=== PATIENT | male | born 1950 | race Caucasian/White ===

== ENCOUNTER → 2019-11-14 | Outpatient (CLI) | payer MEDICARE, OTHER ==
[2014-04-08 00:15] VITALS: BP 123/65
[~2019-11-14] MED LIST: KETOROLAC10 MG PO; MIRAPEX0.25 MG PO
[2019-11-14 10:50] LABS: EOS # 0.1 (0.04-0.40); EOS % 2.6 % (0.0-4.0); HEMATOCRIT 48.5 % (42.0-52.0); HEMOGLOBIN 15.9 g/dL (13.5-18.0); MEAN CELL VOLUME 93 fl (78-100); MEAN CORPUSCULAR HEMOGLOBIN 31 pg (27-31); MEAN CORPUSCULAR HGB CONC 33 g/dL (33-37); MEAN PLATELET VOLUME 8.8 fl (7.4-10.4); MONO # 0.5 (0.20-0.80); NEU # 3.2 (1.40-6.50); PLATELET COUNT 259 K/mm3 (130-400); RED CELL DISTRIBUTION WIDTH 13.3 % (11.5-14.5); WHITE BLOOD COUNT 4.7 K/mm3 (4.8-10.8)
[2019-11-14 11:02] LABS: LYMPH# 0.7 (1.50-4.00)
[2019-11-14 11:23] LABS: ALBUMIN 4.1 g/dL (3.4-4.8); POTASSIUM 4.8 mmol/L (3.5-5.1)
[2019-11-14 11:24] LABS: CALCIUM 8.9 mg/dL (8.3-10.5)
[2019-11-14 11:25] LABS: TOTAL PROTEIN 7.1 g/dL (6.2-8.1)
[2019-11-14 11:27] LABS: TOTAL BILIRUBIN 0.9 mg/dL (0.2-1.2)
== END ==
LOC: LAB 10:01
PROVIDERS: Family Medicine
DX: Z00.00 Encounter for general adult medical examination without abnormal findings (principal); Z12.5 Encounter for screening for malignant neoplasm of prostate; R53.83 Other fatigue; E78.5 Hyperlipidemia, unspecified

== ENCOUNTER → 2019-11-20 | Outpatient (CLI) | payer MEDICARE, OTHER ==
[2014-04-08 00:15] VITALS: BP 123/65
[2019-11-20 12:07] LABS: ALBUMIN 4.1 g/dL (3.4-4.8)
[2019-11-20 12:08] LABS: POTASSIUM 5.4 mmol/L (3.5-5.1)
[2019-11-20 12:09] LABS: CALCIUM 9.8 mg/dL (8.3-10.5)
[2019-11-20 12:10] LABS: TOTAL PROTEIN 7.3 g/dL (6.2-8.1)
[2019-11-20 12:12] LABS: TOTAL BILIRUBIN 0.9 mg/dL (0.2-1.2)
[2019-11-20 12:15] LABS: EOS # 0.1 (0.04-0.40); EOS % 2.2 % (0.0-4.0); HEMATOCRIT 47.8 % (42.0-52.0); HEMOGLOBIN 15.9 g/dL (13.5-18.0); MEAN CELL VOLUME 93 fl (78-100); MEAN CORPUSCULAR HEMOGLOBIN 31 pg (27-31); MEAN CORPUSCULAR HGB CONC 33 g/dL (33-37); MEAN PLATELET VOLUME 8.7 fl (7.4-10.4); MONO # 0.7 (0.20-0.80); NEU # 4.4 (1.40-6.50); PLATELET COUNT 330 K/mm3 (130-400); RED BLOOD COUNT 5.16 M/mm3 (4.20-5.60); RED CELL DISTRIBUTION WIDTH 13.1 % (11.5-14.5); WHITE BLOOD COUNT 6.4 K/mm3 (4.8-10.8)
== END ==
LOC: LAB 11:45
PROVIDERS: Family Medicine
DX: N17.9 Acute kidney failure, unspecified (principal); D72.829 Elevated white blood cell count, unspecified

== ENCOUNTER 2019-12-11 08:00 | Outpatient (RCR) | payer MEDICARE, OTHER ==
[2014-04-08 00:15] VITALS: BP 123/65
== END 2020-02-17 | disposition still patient (30) ==
LOC: PT
DX: R42 Dizziness and giddiness (principal)

== ENCOUNTER 2020-10-09 09:19 | Outpatient (RCR) | payer MEDICARE, OTHER ==
[2014-04-08 00:15] VITALS: BP 123/65
== END 2021-01-07 | disposition home or self-care (01) ==
LOC: PT
DX: R42 Dizziness and giddiness (principal)

== ENCOUNTER → 2020-11-08 | Outpatient (CLI) | payer MEDICARE, BC ==
[2014-04-08 00:15] VITALS: BP 123/65
== END ==
LOC: LAB 10:58
DX: U07.1 COVID-19 (principal)

== ENCOUNTER → 2021-02-09 | Outpatient (CLI) | payer MEDICARE, BC ==
[2014-04-08 00:15] VITALS: BP 123/65
[2021-02-09 12:43] LABS: BASO # 0.04 (0.02-0.10); EOS # 0.31 (0.04-0.40); EOS % 6.1 % (0.0-4.0); HEMATOCRIT 48.1 % (42.0-52.0); LYMPH# 0.96 (1.50-4.00); MEAN CELL VOLUME 94 fl (78-100); MEAN CORPUSCULAR HEMOGLOBIN 31 pg (27-31); MEAN CORPUSCULAR HGB CONC 33 g/dL (33-37); MEAN PLATELET VOLUME 8.7 fl (7.4-10.4); NEU # 3.16 (1.40-6.50); PLATELET COUNT 230 K/mm3 (130-400); RED BLOOD COUNT 5.12 M/mm3 (4.20-5.60); WHITE BLOOD COUNT 5.1 K/mm3 (4.8-10.8)
[2021-02-09 12:44] LABS: POTASSIUM 4.7 mmol/L (3.5-5.1)
[2021-02-09 12:45] LABS: CALCIUM 8.9 mg/dL (8.3-10.5)
[2021-02-09 12:46] LABS: TOTAL PROTEIN 6.9 g/dL (6.2-8.1)
[2021-02-09 22:32] LABS: TESTOSTERONE 530 ng/dL (221-716)
[2021-02-09 22:49] LABS: T3 TOTAL 107 ng/dL (58-159)
[2021-02-09 22:58] LABS: CORTISOL RANDOM 5 ug/dL (3-20)
== END ==
LOC: LAB 12:13
PROVIDERS: Family Medicine
DX: E66.9 Obesity, unspecified (principal); E55.9 Vitamin D deficiency, unspecified

== ENCOUNTER 2021-10-05 21:32 | Emergency (ER) | payer MEDICARE, BC ==
[~2021-10-05 21:32] MED LIST changes: +MIRAPEX0.25 M1 PO; -MIRAPEX0.25 MG PO
[2021-10-05 22:55] LABS: HEMATOCRIT 46.9 % (42.0-52.0); HEMOGLOBIN 15.4 g/dL (13.5-18.0); MEAN CELL VOLUME 95 fl (78-100); MEAN CORPUSCULAR HEMOGLOBIN 31 pg (27-31); MEAN CORPUSCULAR HGB CONC 33 g/dL (33-37); MEAN PLATELET VOLUME 9.2 fl (7.4-10.4); PLATELET COUNT 214 K/mm3 (130-400); RED BLOOD COUNT 4.96 M/mm3 (4.20-5.60); RED CELL DISTRIBUTION WIDTH 12.4 % (11.5-14.5); WHITE BLOOD COUNT 9.7 K/mm3 (4.8-10.8)
[2021-10-05 22:56] LABS: ALBUMIN 3.8 g/dL (3.4-4.8); CALCIUM 9.1 mg/dL (8.3-10.5); CARBON DIOXIDE 21 mmol/L (23-31); GLUCOSE 139 mg/dL (75-110); SODIUM 139 mmol/L (136-145); TOTAL BILIRUBIN 1.4 mg/dL (0.2-1.2); TOTAL PROTEIN 6.9 g/dL (6.2-8.1)
[2021-10-05 23:00] LABS: ALT/SGPT 17 U/L (0-55); AST-SGOT 16 U/L (5-34)
[2021-10-05 23:09] LABS: LYMPHOCYTE 3 % (20-51); MONOCYTE 9 % (3-10); NEUTROPHILS 88 % (42-75)
[2021-10-05] MEDS ORDERED: PRAMIPEXOLE D0.25 MG PO (23:10)
[2021-10-05] MEDS ORDERED: ULTRAM50 M1 PO (23:11)
[2021-10-05] MEDS ORDERED: CELEBREX 1100 MG/CAP PO (23:11)
[2021-10-05] MEDS ORDERED: VITAMIN D31250 MCG PO (23:11)
[2021-10-05] MEDS ORDERED: GOOD NEIGHBOR P20 M1 PO (23:12)
[2021-10-05] MEDS ORDERED: MAGNESIUM400 MG PO (23:12)
[2021-10-05] MEDS ORDERED: TADALAFIL5 MG PO (23:12)
[2021-10-05] MEDS ORDERED: LEXAPRO 10MG10 MG PO (23:13)
[2021-10-05 23:15] LABS: TROPONIN-I < 0.030 ng/mL (<0.030)
[2021-10-06 00:08] LABS: URINE APPEARANCE CLEAR; URINE BILIRUBIN NEGATIVE (NEGATIVE); URINE COLOR YELLOW; URINE GLUCOSE NEGATIVE (NEGATIVE); URINE KETONE NEGATIVE (NEGATIVE); URINE PROTEIN(semi-quant) TRACE (NEGATIVE); URINE UROBILINOGEN NORMAL (NORMAL)
[2021-10-06 00:09] LABS: URINE BLOOD NEGATIVE (NEGATIVE); URINE LEUKOCYTE ESTERASE NEGATIVE (NEGATIVE); URINE MUCUS PRESENT (NOT PRESENT); URINE NITRATE NEGATIVE (NEGATIVE)
[2021-10-06] MEDS ORDERED: ZOFRAN ODT4 MG PO (01:01)
[2021-10-06 01:23] VITALS: BP 112/72
== END 2021-10-06 01:23 | disposition home or self-care (01) ==
LOC: ED 21:32
PROVIDERS: Physician Assistant
DX: U07.1 COVID-19 (principal); K21.9 Gastro-esophageal reflux disease without esophagitis; Z79.899 Other long term (current) drug therapy
CPT/HCPCS: J2405; J7030

== ENCOUNTER → 2022-03-03 | Outpatient (CLI) | payer MEDICARE, BC ==
[~2022-03-03] MED LIST changes: +CELEBREX 1100 MG/CAP PO; +GOOD NEIGHBOR P20 M1 PO; +LEXAPRO 10MG10 MG PO; +MAGNESIUM400 MG PO; +PRAMIPEXOLE D0.25 MG PO; +TADALAFIL5 MG PO; +ULTRAM50 M1 PO; +VITAMIN D31250 MCG PO; +ZOFRAN ODT4 MG PO
[2022-03-03 11:46] LABS: BASO # 0.02 K/mm3 (0.02-0.10); EOS # 0.23 K/mm3 (0.04-0.40); EOS % 4.4 % (0.0-4.0); HEMATOCRIT 47.9 % (42.0-52.0); HEMOGLOBIN 15.9 g/dL (13.5-18.0); LYMPH# 0.87 K/mm3 (1.50-4.00); MEAN CELL VOLUME 94 fl (78-100); MEAN CORPUSCULAR HEMOGLOBIN 31 pg (27-31); MEAN CORPUSCULAR HGB CONC 33 g/dL (33-37); MEAN PLATELET VOLUME 8.9 fl (7.4-10.4); MONO # 0.51 K/mm3 (0.20-0.80); NEU # 3.62 K/mm3 (1.40-6.50); PLATELET COUNT 233 K/mm3 (130-400); RED BLOOD COUNT 5.09 M/mm3 (4.20-5.60); RED CELL DISTRIBUTION WIDTH 12.7 % (11.5-14.5); WHITE BLOOD COUNT 5.3 K/mm3 (4.8-10.8)
[2022-03-03 11:57] LABS: POTASSIUM 4.4 mmol/L (3.5-5.1)
[2022-03-03 11:58] LABS: CALCIUM 9.1 mg/dL (8.3-10.5)
[2022-03-03 11:59] LABS: TOTAL PROTEIN 6.7 g/dL (6.2-8.1)
[2022-03-03 12:01] LABS: TOTAL BILIRUBIN 1.2 mg/dL (0.2-1.2)
[2022-03-04 03:46] LABS: T3 FREE 3.1 pg/mL (1.7-3.7)
== END ==
LOC: LAB 11:23
PROVIDERS: Family Medicine
DX: E78.5 Hyperlipidemia, unspecified (principal); F32.9 Major depressive disorder, single episode, unspecified; K21.9 Gastro-esophageal reflux disease without esophagitis; G60.9 Hereditary and idiopathic neuropathy, unspecified; G43.909 Migraine, unspecified, not intractable, without status migrainosus; E66.3 Overweight; G25.81 Restless legs syndrome; G47.36 Sleep related hypoventilation in conditions classified elsewhere

== ENCOUNTER → 2022-06-17 | Outpatient (CLI) | payer MEDICARE, BC | LOC: LAB 12:33 | DX: Z20.822 Contact with and (suspected) exposure to COVID-19 (principal) ==

== ENCOUNTER → 2022-07-14 | Outpatient (CLI) | payer MEDICARE, BC ==
[~2022-07-14] MED LIST changes: +PRAMIPEXOLE DIHY1 MG PO
[2022-07-14 12:12] LABS: URINE APPEARANCE CLEAR; URINE COLOR YELLOW
[2022-07-14 12:13] LABS: URINE BILIRUBIN NEGATIVE (NEGATIVE); URINE BLOOD NEGATIVE (NEGATIVE); URINE GLUCOSE NEGATIVE (NEGATIVE); URINE KETONE NEGATIVE (NEGATIVE); URINE LEUKOCYTE ESTERASE NEGATIVE (NEGATIVE); URINE NITRATE NEGATIVE (NEGATIVE); URINE PROTEIN(semi-quant) NEGATIVE (NEGATIVE); URINE UROBILINOGEN NORMAL (NORMAL); URINE WBC 0-1 /hpf (0-3)
[2022-07-14 23:07] LABS: CREATININE OTHER SOURCE 82 mg/dL (47-110)
== END ==
LOC: LAB 11:10
PROVIDERS: Family Medicine
DX: N39.0 Urinary tract infection, site not specified (principal)

== ENCOUNTER → 2022-07-21 | Day surgery (SDC) | payer MEDICARE, BC | END | disposition home or self-care (01) | LOC: MSO 06-23 12:00 | DX: H25.11 Age-related nuclear cataract, right eye (principal); Z87.891 Personal history of nicotine dependence; G25.81 Restless legs syndrome; Z86.16 Personal history of COVID-19 | CPT/HCPCS: 00142; J0171; J2250; V2632 ==

== ENCOUNTER → 2022-12-28 | Outpatient (CLI) | payer MEDICARE, BC ==
[~2022-12-28] MED LIST changes: +CYCLOBENZ5 MG PO
[2022-12-28 08:28] LABS: BASO # 0.03 K/mm3 (0.02-0.10); EOS # 0.17 K/mm3 (0.04-0.40); EOS % 3.4 % (0.0-4.0); HEMATOCRIT 46.1 % (42.0-52.0); HEMOGLOBIN 15.6 g/dL (13.5-18.0); LYMPH# 1.06 K/mm3 (1.50-4.00); MEAN CELL VOLUME 93 fl (78-100); MEAN CORPUSCULAR HEMOGLOBIN 32 pg (27-31); MEAN CORPUSCULAR HGB CONC 34 g/dL (33-37); MEAN PLATELET VOLUME 8.7 fl (7.4-10.4); NEU # 3.11 K/mm3 (1.40-6.50); PLATELET COUNT 241 K/mm3 (130-400); RED BLOOD COUNT 4.94 M/mm3 (4.20-5.60); RED CELL DISTRIBUTION WIDTH 12.7 % (11.5-14.5)
[2022-12-28 08:42] LABS: ALBUMIN 3.9 g/dL (3.4-4.8)
[2022-12-28 08:43] LABS: POTASSIUM 4.2 mmol/L (3.5-5.1)
[2022-12-28 08:44] LABS: CALCIUM 9.7 mg/dL (8.3-10.5)
[2022-12-28 08:45] LABS: TOTAL PROTEIN 6.5 g/dL (6.2-8.1)
[2022-12-28 08:47] LABS: TOTAL BILIRUBIN 0.9 mg/dL (0.2-1.2)
[2022-12-29 00:06] LABS: FOLATE (FOLIC ACID) 4.2 ng/mL (2.0-20.0)
== END ==
LOC: LAB 07:43
PROVIDERS: Family Medicine
DX: F32.9 Major depressive disorder, single episode, unspecified (principal); K21.9 Gastro-esophageal reflux disease without esophagitis; G60.9 Hereditary and idiopathic neuropathy, unspecified; G43.909 Migraine, unspecified, not intractable, without status migrainosus; E66.3 Overweight; G25.81 Restless legs syndrome; G47.36 Sleep related hypoventilation in conditions classified elsewhere; R42 Dizziness and giddiness; E03.9 Hypothyroidism, unspecified; R53.83 Other fatigue

== ENCOUNTER → 2023-01-12 | Outpatient (CLI) | payer MEDICARE, BC ==
[2023-01-12 22:07] LABS: CORTISOL, AM (0800) 8 ug/dL (3-20)
[2023-01-12 22:58] LABS: LYME DISEASE EIA Negative (Negative)
[2023-01-13 10:10] LABS: ANA SCREEN with REFLEX Negative (Negative)
[2023-01-14 22:25] LABS: TB A PHAGOCYTOPHILUM IgG <1:64 titer (<1:64)
[2023-01-14 22:28] LABS: TB E CHAFFEENSIS IgG <1:64 titer (<1:64)
[2023-01-14 22:37] LABS: TB BABESIA MICROTI IgG <1:64 titer (<1:64); TB LYME DISEASE SEROLOGY Negative (Negative)
[2023-01-17 18:32] LABS: THYROTROPIN RECEPTOR AB AMS
== END ==
LOC: LAB 10:48
PROVIDERS: Nurse Practitioner
DX: R53.81 Other malaise (principal)

== ENCOUNTER → 2024-02-15 | Outpatient (CLI) | payer MEDICARE, BC ==
[~2024-02-15] MED LIST changes: +HYDROCORTISONE5 M2 PO
== END ==
LOC: LAB 08:00
DX: F03.90 Unspecified dementia, unspecified severity, without behavioral disturbance, psychotic disturbance, mood disturbance, and anxiety (principal)

== ENCOUNTER → 2024-04-24 | Outpatient (CLI) | payer MEDICARE, BC | LOC: RAD 12:31 | DX: F03.90 Unspecified dementia, unspecified severity, without behavioral disturbance, psychotic disturbance, mood disturbance, and anxiety (principal) ==

== ENCOUNTER → 2024-07-09 | Outpatient (CLI) | payer MEDICARE, BC ==
[2024-07-09 11:55] LABS: URINE APPEARANCE CLEAR (CLEAR); URINE BILIRUBIN NEGATIVE (NEGATIVE); URINE BLOOD NEGATIVE (NEGATIVE); URINE COLOR YELLOW (YELLOW); URINE GLUCOSE NEGATIVE (NEGATIVE); URINE KETONE NEGATIVE (NEGATIVE); URINE LEUKOCYTE ESTERASE TRACE (NEGATIVE); URINE NITRATE NEGATIVE (NEGATIVE); URINE PROTEIN(semi-quant) NEGATIVE (NEGATIVE)
== END ==
LOC: LAB 10:39
PROVIDERS: Family Medicine
DX: R35.1 Nocturia (principal)

== ENCOUNTER 2024-10-27 17:07 | Emergency (ER) | payer MEDICARE, BC ==
[~2024-10-27] VITALS: Ht 180.3 cm; Wt 90.9 kg
[2024-10-27 17:37] LABS: HEMATOCRIT 45.9 % (42.0-52.0); HEMOGLOBIN 15.1 g/dL (13.5-18.0); MEAN CELL VOLUME 98 fl (78-100); MEAN CORPUSCULAR HEMOGLOBIN 32 pg (27-31); MEAN CORPUSCULAR HGB CONC 33 g/dL (33-37); MEAN PLATELET VOLUME 8.8 fl (7.4-10.4); PLATELET COUNT 172 K/mm3 (130-400); RED BLOOD COUNT 4.69 M/mm3 (4.20-5.60); RED CELL DISTRIBUTION WIDTH 12.4 % (11.5-14.5); WHITE BLOOD COUNT 7.3 K/mm3 (4.8-10.8)
[2024-10-27 17:46] LABS: ALBUMIN 4.2 g/dL (3.4-4.8)
[2024-10-27 17:48] LABS: TOTAL PROTEIN 7.1 g/dL (6.2-8.1)
[2024-10-27 17:50] LABS: TOTAL BILIRUBIN 1.4 mg/dL (0.2-1.2)
[2024-10-27 17:59] LABS: BAND 7 % (0-10); LYMPHOCYTE 5 % (20-51); MONOCYTE 10 % (3-10); NEUTROPHILS 78 % (42-75)
[2024-10-27] MEDS ORDERED: NS 1,000 ML IV SCH (18:45)
[2024-10-27] MEDS ORDERED: Acetaminophen 325 MG TAB PO ONE (20:45)
[2024-10-27] MEDS ORDERED: ZOFRAN ODT4 MG PO (20:56)
[2024-10-27] MEDS ORDERED: Home Ondansetron ODT 4 MG #2 ODT/PACK PO ONE (21:00)
[2024-10-27 21:20] VITALS: BP 132/63
== END 2024-10-27 21:20 | disposition home or self-care (01) ==
LOC: ED 17:07
PROVIDERS: Family Medicine
DX: J10.1 Influenza due to other identified influenza virus with other respiratory manifestations (principal)
CPT/HCPCS: J7030

== ENCOUNTER → 2024-11-09 | Outpatient (CLI) | payer MEDICARE, BC ==
[2024-11-09 08:25] LABS: BASO # 0.01 K/mm3 (0.02-0.10); EOS # 0.13 K/mm3 (0.04-0.40); EOS % 2.6 % (0.0-4.0); HEMATOCRIT 44.5 % (42.0-52.0); HEMOGLOBIN 14.9 g/dL (13.5-18.0); LYMPH# 0.87 K/mm3 (1.50-4.00); MEAN CELL VOLUME 95 fl (78-100); MEAN CORPUSCULAR HEMOGLOBIN 32 pg (27-31); MEAN CORPUSCULAR HGB CONC 34 g/dL (33-37); MONO # 0.63 K/mm3 (0.20-0.80); NEU # 3.31 K/mm3 (1.40-6.50); PLATELET COUNT 324 K/mm3 (130-400); RED BLOOD COUNT 4.71 M/mm3 (4.20-5.60); RED CELL DISTRIBUTION WIDTH 12.2 % (11.5-14.5)
[2024-11-09 08:28] LABS: CALCIUM 9.4 mg/dL (8.3-10.5)
[2024-11-09 08:29] LABS: TOTAL PROTEIN 6.9 g/dL (6.2-8.1)
[2024-11-09 08:31] LABS: TOTAL BILIRUBIN 1.3 mg/dL (0.2-1.2)
== END ==
LOC: LAB 07:55
PROVIDERS: Family Medicine
DX: R05.9 Cough, unspecified (principal)